=== PATIENT | male | born 1985 | race American Indian/Alaskan Native ===

== ENCOUNTER 2019-05-01 20:08 | Emergency (ER) | payer SELFPAY ==
[2019-05-01] MEDS ORDERED: NACL 0.9% 1000 ML 1,000 ML IV ONE (20:39)
[2019-05-01] MEDS ORDERED: FIORICET PO ONE (20:39)
[2019-05-01] MEDS ORDERED: TORADOL IV ONE (20:39)
[2019-05-01] MEDS ORDERED: REGLAN IV ONE (20:39)
[2019-05-01] MEDS ORDERED: BENADRYL IV ONE (20:39)
--- NOTE | 2019-05-01 21:04 | Cat Scan Report ---
PROCEDURE: CT HEAD/BRAIN WO CON TECHNIQUE: Computerized tomography of the head was performed without contrast material. CT DOSE LENGTH PRODUCT: 920.5 mGycm HISTORY: headache COMPARISONS: None . FINDINGS: Skull and scalp: Normal . Paranasal sinuses: Mucosal thickening in the left maxillary, bilateral ethmoid, and left sphenoid is noted suggesting chronic sinusitis . Ventricles and subarachnoid spaces: Normal . Cerebrum: No evidence of hemorrhage, acute infarction or mass . Cerebellum and brainstem: No evidence of hemorrhage, acute infarction or mass . Vasculature: Normal . Other: None . ASPECTS: 10 IMPRESSION: No acute intracranial abnormality. Chronic sinusitis This document is electronically signed by Britney Cotto MD., May 01 2019 09:02:20 PM ET
[2019-05-01 21:21] LABS: Basophils # (Auto) 0.1 K/mm3 (0.0-0.1); Basophils % (Auto) 0.8 % (0.0-1.8); Eosinophils # (Auto) 0.4 K/mm3 (0.0-0.4); Eosinophils % (Auto) 2.7 % (0.0-4.3); Hematocrit 41.5 % (35.5-45.6); Hemoglobin 14.1 gm/dl (11.8-15.2); Lymphocytes # (Auto) 3.2 K/mm3 (1.2-5.4); Lymphocytes % (Auto) 23.5 % (13.4-35.0); Mean Corpuscular HGB Conc 34 % (32-34); Mean Corpuscular Volume 92 fl (84-94); Monocytes # (Auto) 1.5 K/mm3 (0.0-0.8); Monocytes % (Auto) 11.2 % (0.0-7.3); Platelet Count 296 K/mm3 (140-440); Red Blood Count 4.52 M/mm3 (3.65-5.03); Red Cell Distribution Width 13.1 % (13.2-15.2)
[2019-05-01 21:37] LABS: Alanine Aminotransferase 30 units/L (7-56); Albumin 3.9 g/dL (3.9-5); BUN/Creatinine Ratio 15; Blood Urea Nitrogen 15 mg/dL (9-20); Hemolysis Index 24
[2019-05-01] MEDS ORDERED: ROCEPHIN/NS 1 GM/50 ML 1 GM/50 ML BAG IV ONE (21:47)
--- NOTE | 2019-05-01 21:55 | Emergency Department Report ---
ED Headache HPI - General Chief Complaint: Headache Stated Complaint: HEADACHE Time Seen by Provider: 05/01/19 20:20 Source: patient Exam Limitations: no limitations - History of Present Illness Initial Comments: Patient is a 33-year-old -[place] male with a past medical history of Asthma presents to the ED with complaint of acute onset of persistent severe frontal headache with intermittent lightheadedness for the last 3 weeks. Patient states that the pain has worsened in the last 1 week, especially in the last 2 days such that he is unable to sleep because of severe headache. Patient states that he has had intermittent nasal and sinus congestion with pressure. Last 1 month. Patient states that he has been told to take [id number] pain medications with no relief. Patient denies nausea, vomiting, fever, chills, change in vision, neck pain, chest pain, shortness of breath, dizziness, speech changes, sore throat, cough, palpitations, syncope or seizures. Timing/Duration: constant, waxing and waning, other (3 weeks) Quality: severe, constant, sharp, throbbing Head Injury Location: frontal Recent Head Trauma: no recent headache/trauma Associated Symptoms: denies symptoms, facial pain, nasal congestion, sinus infection, other (lightheadedness). denies: confusion, fatigue, fever/chills, flushing, loss of consciousness, nausea/vomiting, nasal drainage, numbness in legs/feet, rash, seizures, stiff neck, vision changes, weakness Allergies/Adverse Reactions: Allergies shellfish derived Allergy (Verified 02/18/16 13:54) Swelling Home Medications: Ambulatory Orders ALBUTEROL Inhaler (OR & NICU) [ProAir HFA Inhaler] 2 puff IH QID PRN #1 inhalation 03/13/15 Butalb/Acetamin/Caff 50-325-40 [Fioricet 50-325-40] 1 - 2 tab PO Q4H PRN #15 tablet 05/01/19 Clindamycin [Clindamycin CAP] 300 mg PO Q8HR #60 capsule 05/01/19 Ibuprofen [Motrin] 800 mg PO Q8HR PRN #24 tablet 05/01/19 Ondansetron [Zofran Odt] 4 mg PO Q6HR PRN #15 tab.rapdis 05/01/19 ED Review of Systems ROS: Stated complaint: HEADACHE Other details as noted in HPI Comment: All other systems reviewed and negative Constitutional: no symptoms reported. denies: chills, fever Eyes: denies: eye pain, eye discharge, vision change ENT: congestion. denies: ear pain, throat pain, dental pain, hearing loss, epistaxis Respiratory: denies: cough, shortness of breath, SOB with exertion, SOB at rest, wheezing Cardiovascular: denies: chest pain, palpitations, dyspnea on exertion, edema, syncope, paroxysmal nocturnal dyspnea Endocrine: no symptoms reported Gastrointestinal: denies: abdominal pain, nausea, vomiting, diarrhea, constipation, hematemesis Genitourinary: denies: urgency, dysuria Musculoskeletal: denies: back pain, joint swelling, arthralgia Skin: denies: rash, lesions Neurological: headache. denies: weakness, paresthesias Psychiatric: denies: anxiety, depression Hematological/Lymphatic: denies: easy bleeding, easy bruising ED Past Medical Hx - Past Medical History Previous Medical History?: Yes Hx Asthma: Yes Additional medical history: OBESITY - Surgical History Past Surgical History?: No - Social History Smoking Status: Current Every Day Smoker Substance Use Type: Alcohol, Cocaine - Medications Home Medications: Home Medications Medication Instructions Recorded Confirmed Last Taken Type ALBUTEROL Inhaler (OR & NICU) 2 puff IH QID PRN #1 inhalation 03/13/15 02/18/16 Unknown Rx [ProAir HFA Inhaler] Butalb/Acetamin/Caff 50-325-40 1 - 2 tab PO Q4H PRN #15 tablet 05/01/19 Unknown Rx [Fioricet 50-325-40] Clindamycin [Clindamycin CAP] 300 mg PO Q8HR #60 capsule 05/01/19 Unknown Rx Ibuprofen [Motrin] 800 mg PO Q8HR PRN #24 tablet 05/01/19 Unknown Rx Ondansetron [Zofran Odt] 4 mg PO Q6HR PRN #15 tab.rapdis 05/01/19 Unknown Rx ED Physical Exam - General Limitations: No Limitations General appearance: alert, in no apparent distress - Head Head exam: Present: atraumatic, normocephalic, normal inspection - Eye Eye exam: Present: normal appearance, PERRL, EOMI. Absent: scleral icterus, conjunctival injection, nystagmus, periorbital swelling, periorbital tenderness - ENT ENT exam: Present: normal exam, normal orophraynx, mucous membranes moist, TM's normal bilaterally, normal external ear exam - Neck Neck exam: Present: normal inspection, full ROM. Absent: tenderness, meningismus, lymphadenopathy, thyromegaly - Respiratory Respiratory exam: Present: normal lung sounds bilaterally. Absent: respiratory distress, wheezes, rales, rhonchi, stridor, chest wall tenderness, accessory muscle use, decreased breath sounds, prolonged expiratory - Cardiovascular Cardiovascular Exam: Present: regular rate, normal rhythm, normal heart sounds. Absent: systolic murmur, diastolic murmur, rubs, gallop - GI/Abdominal GI/Abdominal exam: Present: soft, normal bowel sounds. Absent: tenderness, guarding, rebound, hyperactive bowel sounds, hypoactive bowel sounds, organomegaly - Rectal Rectal exam: Present: deferred - Extremities Exam Extremities exam: Present: normal inspection, full ROM, normal capillary refill - Back Exam Back exam: Present: normal inspection, full ROM. Absent: tenderness, CVA tenderness (R), CVA tenderness (L), muscle spasm, paraspinal tenderness, vertebral tenderness - Neurological Exam Neurological exam: Present: alert, oriented X3, CN II-XII intact, normal gait, reflexes normal - Psychiatric Psychiatric exam: Present: normal affect, normal mood, anxious - Skin Skin exam: Present: warm, dry, intact, normal color. Absent: rash ED Course Vital Signs 05/01/19 05/01/19 05/01/19 20:17 21:32 22:36 Temperature 98.6 F 98.5 F Pulse Rate 99 H 78 Respiratory 18 20 17 Rate Blood Pressure 167/70 156/88 [Left] O2 Sat by Pulse 99 98 Oximetry - Reevaluation(s) Reevaluation #1: 05/01/19 21:57 Patient is alert and oriented 3 and is not in distress. Head CT scan shows significant chronic sinusitis in the ethmoid, sphenoid and maxillary sinuses but there is no acute intracranial abnormalities or hemorrhages noted in the imaging test. Lab tests results were reviewed and are significant for acute leukocytosis 13,700. The rest of the lab test results are unremarkable. Patient was also treated with Rocephin 1 g IV in the ED for the chronic s inusitis. Patient was treated for headache in the ED and on reevaluation, patient's headache has resolved, patient resting comfortably in the bed in no acute distress. Patient discharged home on medications and otherwise follow-up with his care physician in 7-10 days for reevaluation. Patient was advised to return to the ED immediately if symptoms get worse. 05/01/19 21:58 ED Medical Decision Making - Lab Data Result diagrams: 05/01/19 20:58 05/01/19 20:58 - Radiology Data Radiology results: report reviewed, image reviewed Head CT scan w/o contrast: Shows no acute intracranial abnormalities or hemorrhage; There is however chronic sinusitis noted in the ethmoid, sphenoid and left maxillary sinuses. - Medical Decision Making Patient is alert and oriented 3 and is not in distress. Head CT scan shows significant chronic sinusitis in the ethmoid, sphenoid and maxillary sinuses but there is no acute intracranial abnormalities or hemorrhages noted in the imaging test. Lab tests results were reviewed and are significant for acute leukocytosis 13,700. The rest of the lab test results are unremarkable. Patient was also treated with Rocephin 1 g IV in the ED for the chronic sinusitis. Patient was treated for headache in the ED and on reevaluation, patient's headache has resolved, patient resting comfortably in the bed in no acute distress. Patient discharged home on medications and otherwise follow-up with his care physician in 7-10 days for reevaluation. Patient was advised to return to the ED immediately if symptoms get worse. - Differential Diagnosis severe sinus headache; chronic sinusitis Critical care attestation.: If time is entered above; I have spent that time in minutes in the direct care of this critically ill patient, excluding procedure time. ED Disposition Clinical Impression: Sinus headache Chronic sinusitis Qualifiers: Sinusitis location: pansinusitis Qualified Code(s): J32.4 - Chronic pansinusitis Disposition: DC-01 TO HOME OR SELFCARE Is pt being admited?: No Does the pt Need Aspirin: No Condition: Stable Instructions: Sinusitis (ED), Acute Headache (ED) Additional Instructions: Take medications with food, drink plenty of fluids and follow-up with your primary care physician in 7-10 days for reevaluation. Return to the ED immediately if symptoms get worse. Prescriptions: Clindamycin [Clindamycin CAP] 300 mg PO Q8HR #60 capsule Butalb/Acetamin/Caff 50-325-40 [Fioricet 50-325-40] 1 - 2 tab PO Q4H PRN #15 tablet PRN Reason: Headache Ibuprofen [Motrin] 800 mg PO Q8HR PRN #24 tablet PRN Reason: Pain , Severe (7-10) Ondansetron [Zofran Odt] 4 mg PO Q6HR PRN #15 tab.rapdis PRN Reason: Nausea Referrals: [facility] [Primary Care Provider] - 3-5 Days Time of Disposition: 22:08 Print Language: GERMAN
[2019-05-01 22:37] VITALS: BP 156/88
== END 2019-05-01 22:37 | disposition home or self-care (01) ==
LOC: ED 20:08
DX: J32.2 Chronic ethmoidal sinusitis (principal); J32.3 Chronic sphenoidal sinusitis; J32.0 Chronic maxillary sinusitis; Z91.013 Allergy to seafood; J45.909 Unspecified asthma, uncomplicated; E66.9 Obesity, unspecified; Z68.38 Body mass index [BMI] 38.0-38.9, adult; F17.200 Nicotine dependence, unspecified, uncomplicated; F12.10 Cannabis abuse, uncomplicated
CPT/HCPCS: 36415; 70450; 80053; 85025; 96365; 96375; 99284; J0696; J1200; J1885; J2765; J7030

== ENCOUNTER 2019-10-10 16:03 | Emergency (ER) | payer SELFPAY ==
--- NOTE | 2019-10-10 16:29 | Emergency Department Report ---
Blank Doc - Documentation Documentation: 34-year-old male that presents with URI symptoms. This initial assessment/diagnostic orders/clinical plan/treatment(s) is/are subject to change based on patient's health status, clinical progression and re- assessment by fellow clinical providers in the ED. Further treatment and workup at subsequent clinical providers discretion. Patient/guardians urged not to elope from the ED as their condition may be serious if not clinically assessed and managed. Initial orders include: 1- Patient sent to [facility] for further evaluation and treatment 2- cxR
[2019-10-10 16:37] VITALS: BP 160/85
--- NOTE | 2019-10-10 17:09 | XRay Report ---
CHEST 2 VIEWS INDICATION / CLINICAL INFORMATION: cough. COMPARISON: None available. FINDINGS: SUPPORT DEVICES: None. HEART / MEDIASTINUM: No significant abnormality. LUNGS / PLEURA: No significant pulmonary or pleural abnormality. No pneumothorax. ADDITIONAL FINDINGS: No significant additional findings. IMPRESSION: 1. No acute findings. Signer Name: Jesus Manuel Vila MD Signed: 10/10/2019 5:05 PM Workstation Name: [id number]
--- NOTE | 2019-10-10 18:12 | Emergency Department Report ---
Minor Respiratory - HPI Chief Complaint: Upper Respiratory Infection Stated Complaint: SOB/COUGH/RUNNY NOSE Time Seen by Provider: 10/10/19 16:28 Duration: 1 Day Pain Location: Throat, Nose Severity: moderate Minor Respiratory: Yes Rhinorrhea, Yes Cough, Yes Sick Contacts, No Sore Throat, No Able to Tolerate Fluids, No Ear Pain, No Hemoptysis, No Chest Pain, No Shortness of Breath, No Fever Other History: This is a 34-year-old -[place] male who presents to the emergency room with chest tightness, shortness of breath, rhinorrhea for 1 day. Past medical history of asthma. Patient states he ran out of his inhaler but don't think this is related. He is currently taking Laure-Pomerene plus with minimal improvement of symptoms. Denies nausea or vomiting, myalgia, wheezing, diarrhea, or abdominal pain. ED Review of Systems ROS: Stated complaint: SOB/COUGH/RUNNY NOSE Other details as noted in HPI Constitutional: chills. denies: fever ENT: congestion. denies: ear pain, throat pain Respiratory: cough, SOB with exertion. denies: shortness of breath, wheezing Cardiovascular: denies: chest pain (chest tightness), palpitations Gastrointestinal: denies: abdominal pain, nausea, diarrhea Musculoskeletal: denies: back pain, joint swelling, arthralgia Skin: denies: rash, lesions Neurological: denies: headache, weakness, paresthesias Psychiatric: denies: anxiety, depression ED Past Medical Hx - Past Medical History Previous Medical History?: Yes Hx Asthma: Yes Additional medical history: OBESITY - Surgical History Past Surgical History?: No - Social History Smoking Status: Never Smoker Substance Use Type: None - Medications Home Medications: Home Medications Medication Instructions Recorded Confirmed Last Taken Type ALBUTEROL Inhaler (OR & NICU) 2 puff IH QID PRN #1 inhalation 03/13/15 02/18/16 Unknown Rx [ProAir HFA Inhaler] Butalb/Acetamin/Caff 50-325-40 1 - 2 tab PO Q4H PRN #15 tablet 05/01/19 Unknown Rx [Fioricet 50-325-40] Clindamycin [Clindamycin CAP] 300 mg PO Q8HR #60 capsule 05/01/19 Unknown Rx Ibuprofen [Motrin] 800 mg PO Q8HR PRN #24 tablet 05/01/19 Unknown Rx Ondansetron [Zofran Odt] 4 mg PO Q6HR PRN #15 tab.rapdis 05/01/19 Unknown Rx ALBUTEROL Inhaler (OR & NICU) 2 puff IH QID PRN #8.5 gram 10/10/19 Unknown Rx [ProAir HFA Inhaler] Benzonatate [Tessalon Perles] 100 mg PO Q8HR PRN #30 capsule 10/10/19 Unknown Rx Fluticasone [Flonase] 1 spray NS QDAY #1 bottle 10/10/19 Unknown Rx methylPREDNISolone [Medrol 4MG 4 mg PO DAILY #1 tab.ds.pk 10/10/19 Unknown Rx DOSEPAK (21 tabs)] Minor Respiratory Exam - Exam General: Vital signs noted. No distress. Alert and acting appropriately. HEENT: Yes Pharyngeal Erythema (erythematous posterior pharynx), Yes Moist Mucous Membranes, Yes Rhinorrhea (turbinates congested with clear discharge), No Pharyngeal Exudates, No Conjuctival Injection, No Frontal Tenderness, No Maxillary Tenderness Ear: Neither TM Bulge, Neither TM Erythema, Neither EAC Pain, Neither EAC Discharge Neck: Yes Supple, No Adenopathy Lungs: Yes Good Air Exchange, No Wheezes, No Ronchi, No Stridor, No Cough, No Labored Respirations, No Retractions, No Use of Accessory Muscles, No Other Abnormal Lung Sounds Heart: Yes Regular, No Murmur Abdomen: Yes Normal Bowel Sounds, No Tenderness, No Peritoneal Signs Skin: No Rash, No Edema Neurologic: Alert and oriented, no deficits. Musculoskeletal: Unremarkable. ED Course Vital Signs 10/10/19 16:36 Temperature 98.5 F Pulse Rate 96 H Respiratory 18 Rate Blood Pressure 160/85 O2 Sat by Pulse 100 Oximetry ED Medical Decision Making - Radiology Data Radiology results: report reviewed CHEST 2 VIEWS INDICATION / CLINICAL INFORMATION: cough. COMPARISON: None available. FINDINGS: SUPPORT DEVICES: None. HEART / MEDIASTINUM: No significant abnormality. LUNGS / PLEURA: No significant pulmonary or pleural abnormality. No pneumothorax. ADDITIONAL FINDINGS: No significant additional findings. IMPRESSION: 1. No acute findings. - Medical Decision Making 34 y.o. male that presents with chest tightness, shortness of breath, and rhinorrhea. Past medical history of asthma. Patient examined by me and stable. No distress noted. Vitals normal. Chest xray has been obtained and dictated by radiologist with no acute cardiopulmonary findings. Patient notified of x-ray results with no questions. There is mild congestion and erythematous posterior pharynx, uvula midline on focal exam, and lungs clear throughout. Will treat for upper respiratory infection. Patient has past medical history of asthma and ran out of inhaler. Refill inhaler as well. Start albuterol inhaler, benzonatate, Mucinex DM, Flonase, and Medrol Dosepak. Discharged home stable. Encouraged to do supportive care for URI. Follow up with Primary Care Provider in 2-3 days. Critical care attestation.: If time is entered above; I have spent that time in minutes in the direct care of this critically ill patient, excluding procedure time. ED Disposition Clinical Impression: Upper respiratory infection Qualifiers: URI type: acute nasopharyngitis (common cold) Qualified Code(s): J00 - Acute nasopharyngitis [common cold] Disposition: TO HOME OR SELFCARE Is pt being admited?: No Condition: Stable Instructions: Cold Symptoms (ED), Upper Respiratory Infection (ED) Additional Instructions: Increase fluid intake and rest. Wash hands frequently. Continue taking Tylenol or ibuprofen to control fever. F/U with Primary Care Provider. Return to ER if fever, SOB, or difficulty breathing after 48 hours of supportive care. Prescriptions: Fluticasone [Flonase] 1 spray NS QDAY #1 bottle methylPREDNISolone [Medrol 4MG DOSEPAK (21 tabs)] 4 mg PO DAILY #1 tab.ds.pk ALBUTEROL Inhaler (OR & NICU) [ProAir HFA Inhaler] 2 puff IH QID PRN #8.5 gram PRN Reason: Shortness Of Breath Benzonatate [Tessalon Perles] 100 mg PO Q8HR PRN #30 capsule PRN Reason: Cough Referrals: [facility] [Outside] - 3-5 Days [facility] [Outside] - 3-5 Days [facility] [Outside] - 3-5 Days Forms: Work/School Release Form(ED) Time of Disposition: 18:50
== END 2019-10-10 19:11 | disposition home or self-care (01) ==
LOC: ED 16:03
DX: J06.9 Acute upper respiratory infection, unspecified (principal); R07.89 Other chest pain; J45.909 Unspecified asthma, uncomplicated; E66.9 Obesity, unspecified; Z79.899 Other long term (current) drug therapy; Z91.013 Allergy to seafood
CPT/HCPCS: 71046

== ENCOUNTER 2020-12-24 20:24 | Emergency (ER) | payer SELFPAY ==
[2020-12-24] MEDS ORDERED: IPRATROPIUM/ALBUTEROL SULFATE 3 ML AMPUL.NEB IH ONE (21:05)
[2020-12-24] MEDS ORDERED: predniSONE 20 MG TAB PO ONE (21:05)
[2020-12-24] MEDS ORDERED: ALBUTEROL 2.5 MG/3 ML NEBU IH ONE (21:05)
--- NOTE | 2020-12-24 21:12 | Emergency Department Report ---
- General Stated Complaint: SOB,WHEEZING - History of Present Illness Initial Comments: Patient is a 35-year-old -[place] male with a history of asthma who presents to the ED with acute onset persistent shortness of breath intermittently for the last 1 week. Patient states that he does not have any albuterol inhaler at home after he ran out of what he read he had previously. Patient states that the shortness of breath has been persistent especially when he gets exposed to cold weather. Patient denies chest pain, dizziness, syncope, fever, chills, nausea, vomiting, abdominal pain, headache, sore throat, change in vision, dizziness or headache. MD Complaint: cough, rhinorrhea, nasal congestion, other (shortness of breath) -: Sudden, week(s) (1) Severity: moderate Severity scale (0 -10): 5 Quality: dull Consistency: constant Improves With: nothing Worsens With: other (movement and weather) Associated Symptoms: denies other symptoms, rhinorrhea, nasal congestion, cough, shortness of breath. denies: fever, chills, myalgias, diaphoresis, stiff neck, chest pain, abdominal pain, nausea, vomiting, diarrhea, dysuria, rash, confusion, epistaxis Treatments Prior to Arrival: none - Related Data Previous Rx's Medication Instructions Recorded Last Taken Type Butalb/Acetamin/Caff 50-325-40 1 - 2 tab PO Q4H PRN #15 tablet 05/01/19 Unknown Rx [Fioricet 50-325-40] Clindamycin [Clindamycin CAP] 300 mg PO Q8HR #60 capsule 05/01/19 Unknown Rx Ibuprofen [Motrin] 800 mg PO Q8HR PRN #24 tablet 05/01/19 Unknown Rx Ondansetron [Zofran Odt] 4 mg PO Q6HR PRN #15 tab.rapdis 05/01/19 Unknown Rx Fluticasone [Flonase] 1 spray NS QDAY #1 bottle 10/10/19 Unknown Rx Albuterol Mdi (or & Nicu Only) 2 puff IH QID PRN #1 inhalation 12/25/20 Unknown Rx [ProAir HFA Inhaler] Albuterol Mdi (or & Nicu Only) 2 puff IH QID PRN #8.5 gram 12/25/20 Unknown Rx [ProAir HFA Inhaler] Benzonatate [Tessalon Perles] 100 mg PO Q8HR PRN #30 capsule 12/25/20 Unknown Rx Cetirizine HCl [Zyrtec 10mg tab] 10 mg PO DAILY #30 tablet 12/25/20 Unknown Rx methylPREDNISolone [Medrol 4MG 4 mg PO DAILY #1 tab.ds.pk 12/25/20 Unknown Rx DOSEPAK (21 tabs)] Allergies Allergy/AdvReac Type Severity Reaction Status Date / Time shellfish derived Allergy Swelling Verified 02/18/16 13:54 ED Review of Systems ROS: Stated complaint: SOB,WHEEZING Other details as noted in HPI Constitutional: denies: chills, fever Eyes: denies: eye pain, eye discharge, vision change ENT: congestion. denies: ear pain, throat pain Respiratory: cough, shortness of breath, wheezing Cardiovascular: denies: chest pain, palpitations Endocrine: no symptoms reported Gastrointestinal: denies: abdominal pain, nausea, diarrhea Genitourinary: denies: urgency, dysuria Musculoskeletal: denies: back pain, joint swelling, arthralgia Skin: denies: rash, lesions Neurological: denies: headache, weakness, paresthesias Psychiatric: denies: anxiety, depression Hematological/Lymphatic: denies: easy bleeding, easy bruising ED Past Medical Hx - Past Medical History Hx Asthma: Yes Additional medical history: OBESITY - Social History Smoking Status: Never Smoker Substance Use Type: None - Medications Home Medications: Home Medications Medication Instructions Recorded Confirmed Last Taken Type Butalb/Acetamin/Caff 50-325-40 1 - 2 tab PO Q4H PRN #15 tablet 05/01/19 Unknown Rx [Fioricet 50-325-40] Clindamycin [Clindamycin CAP] 300 mg PO Q8HR #60 capsule 05/01/19 Unknown Rx Ibuprofen [Motrin] 800 mg PO Q8HR PRN #24 tablet 05/01/19 Unknown Rx Ondansetron [Zofran Odt] 4 mg PO Q6HR PRN #15 tab.rapdis 05/01/19 Unknown Rx Fluticasone [Flonase] 1 spray NS QDAY #1 bottle 10/10/19 Unknown Rx Albuterol Mdi (or & Nicu Only) 2 puff IH QID PRN #1 inhalation 12/25/20 Unknown Rx [ProAir HFA Inhaler] Albuterol Mdi (or & Nicu Only) 2 puff IH QID PRN #8.5 gram 12/25/20 Unknown Rx [ProAir HFA Inhaler] Benzonatate [Tessalon Perles] 100 mg PO Q8HR PRN #30 capsule 12/25/20 Unknown Rx Cetirizine HCl [Zyrtec 10mg tab] 10 mg PO DAILY #30 tablet 12/25/20 Unknown Rx methylPREDNISolone [Medrol 4MG 4 mg PO DAILY #1 tab.ds.pk 12/25/20 Unknown Rx DOSEPAK (21 tabs)] ED Physical Exam - General General appearance: alert, in no apparent distress - Head Head exam: Present: atraumatic, normocephalic, normal inspection - Eye Eye exam: Present: normal appearance, PERRL, EOMI Pupils: Present: normal accommodation - ENT ENT exam: Present: normal orophraynx, mucous membranes moist, TM's normal bilaterally, normal external ear exam, other (Grossly congested nasal passages) - Neck Neck exam: Present: normal inspection, full ROM - Respiratory Respiratory exam: Present: wheezes (Mildly diffuse coarse wheezes throughout). Absent: respiratory distress, rales, rhonchi, chest wall tenderness, accessory muscle use, decreased breath sounds, prolonged expiratory - Cardiovascular Cardiovascular Exam: Present: regular rate, normal rhythm, normal heart sounds. Absent: systolic murmur, diastolic murmur, rubs, gallop - GI/Abdominal GI/Abdominal exam: Present: soft, normal bowel sounds. Absent: tenderness, guarding, rebound, hyperactive bowel sounds, hypoactive bowel sounds, organomegaly - Extremities Exam Extremities exam: Present: normal inspection, full ROM, normal capillary refill - Back Exam Back exam: Present: normal inspection, full ROM. Absent: tenderness, CVA tenderness (R), CVA tenderness (L), muscle spasm, paraspinal tenderness, vertebral tenderness - Neurological Exam Neurological exam: Present: alert, oriented X3, CN II-XII intact, normal gait, reflexes normal - Psychiatric Psychiatric exam: Present: normal affect, normal mood - Skin Skin exam: Present: warm, dry, intact, normal color. Absent: rash ED Course Vital Signs 12/24/20 12/24/20 12/24/20 21:26 22:58 23:03 Temperature 98.2 F Pulse Rate 89 Pulse Rate [ 90 Anterior Throughout] Respiratory 18 20 Rate Respiratory 20 Rate [Anterior Throughout] Blood Pressure 168/87 O2 Sat by Pulse 96 97 Oximetry ED Medical Decision Making - Radiology Data Radiology results: report reviewed, image reviewed Findings [facility] [address] [place] [address] XRay Report Signed Patient: EVELIA VERA MR#: [id number] : 1985 Acct:[id number] Age/Sex: 35 / M ADM Date: 12/24/20 Loc: ED Attending Dr: Ordering Physician: MARANDA OZUNA Date of Service: 12/24/20 Procedure(s): XR chest routine 2V Accession Number(s): [id number] cc: MARANDA OZUNA Fluoro Time In Minutes: CHEST 2 VIEWS INDICATION / CLINICAL INFORMATION: COUGH, WHEEZING. COMPARISON: 10/10/2019. FINDINGS: SUPPORT DEVICES: None. HEART / MEDIASTINUM: No significant abnormality. LUNGS / PLEURA: No significant pulmonary or pleural abnormality. No pneumothorax. ADDITIONAL FINDINGS: No significant additional findings. IMPRESSION: No acute cardiopulmonary abnormality. Signer Name: Martina John MD Signed: 12/24/2020 9:28 PM Workstation Name: [id number] Transcribed By: SS Dictated By: MARTINA JOHN Electronically Authenticated By: MARTINA JOHN Signed Date/Time: 12/24/202127 DD/ 26 TD/TT: - Medical Decision Making This is a 35-year-old -[place] male with a history of asthma who presents to the ED with acute onset persistent shortness of breath intermittently for the last 1 week. Patient states that he does not have any albuterol inhaler at home after he ran out of what he read he had previously. Patient states that the shortness of breath has been persistent especially when he gets exposed to cold weather. In the ED, patient is alert and oriented x3 and is not in distress with normal vital signs and oxygen saturation of 96% in room air. Patient received DuoNeb treatment as well as albuterol nebulizer in the ED. Patient also received steroids in the ED. Chest x-ray shows no acute cardiopulmonary abnormalities or pneumonitis. On reevaluation, patient's wheezing resolved medications. Patient oxygen saturation ranges from 98 to 100% in room air. Patient was discharged home on medications and advised to follow- up with his primary care physician in 3 to 5 days for reevaluation or return to the ED immediately if symptoms get worse. - Differential Diagnosis Asthma; bronchitis; URI; pneumonia; Critical care attestation.: If time is entered above; I have spent that time in minutes in the direct care of this critically ill patient, excluding procedure time. ED Disposition Clinical Impression: Shortness of breath, Acute asthmatic bronchitis, Acute upper respiratory infection Disposition: TO HOME OR SELFCARE Is pt being admited?: No Does the pt Need Aspirin: No Condition: Stable Instructions: Acute Bronchitis (ED), Shortness of Breath, Adult, [id number], Upper Respiratory Infection, Adult, [id number], Asthma, Adult, [id number], Acute Bronchitis, Adult, [id number] Additional Instructions: Take medications with food, drink plenty of fluids and follow-up with your primary care physician in 7 to 10 days for reevaluation. Return to the ED immediately if your symptoms get worse. Prescriptions: methylPREDNISolone [Medrol 4MG DOSEPAK (21 tabs)] 4 mg PO DAILY #1 tab.ds.pk Albuterol Mdi (or & Nicu Only) [ProAir HFA Inhaler] 2 puff IH QID PRN #8.5 gram PRN Reason: Shortness Of Breath Albuterol Mdi (or & Nicu Only) [ProAir HFA Inhaler] 2 puff IH QID PRN #1 inhalation PRN Reason: Shortness Of Breath Benzonatate [Tessalon Perles] 100 mg PO Q8HR PRN #30 capsule PRN Reason: Cough Cetirizine HCl [Zyrtec 10mg tab] 10 mg PO DAILY #30 tablet Referrals: [facility] [Provider Group] - 3-5 Days Forms: Work/School Release Form(ED) Time of Disposition: 00:14 Print Language: MONGOLIAN
--- NOTE | 2020-12-24 21:32 | XRay Report ---
CHEST 2 VIEWS INDICATION / CLINICAL INFORMATION: COUGH, WHEEZING. COMPARISON: 10/10/2019. FINDINGS: SUPPORT DEVICES: None. HEART / MEDIASTINUM: No significant abnormality. LUNGS / PLEURA: No significant pulmonary or pleural abnormality. No pneumothorax. ADDITIONAL FINDINGS: No significant additional findings. IMPRESSION: No acute cardiopulmonary abnormality. Signer Name: Malvin Cyr MD Signed: 12/24/2020 9:28 PM Workstation Name: [id number]
[2020-12-24 22:07] VITALS: BP 168/87
== END 2020-12-25 00:35 | disposition home or self-care (01) ==
LOC: ED 20:24
DX: J45.909 Unspecified asthma, uncomplicated (principal); J06.9 Acute upper respiratory infection, unspecified; R06.02 Shortness of breath; E66.9 Obesity, unspecified; Z79.899 Other long term (current) drug therapy; Z91.013 Allergy to seafood; Z68.41 Body mass index [BMI] 40.0-44.9, adult
CPT/HCPCS: 71046; 94640; 99283; J7512; 94644

== ENCOUNTER 2021-02-08 22:39 | Emergency (ER) | payer SELFPAY | END 2021-02-09 00:21 | disposition left against medical advice (07) | LOC: ED 22:39 | DX: R05 Cough (principal); R06.02 Shortness of breath; Z53.21 Procedure and treatment not carried out due to patient leaving prior to being seen by health care provider ==

== ENCOUNTER 2021-04-09 22:40 | Emergency (ER) | payer SELFPAY ==
[2021-04-09 22:50] VITALS: BP 149/101
--- NOTE | 2021-04-09 23:26 | XRay Report ---
CHEST 2 VIEWS INDICATION / CLINICAL INFORMATION: productive cough. COMPARISON: 2 views of the chest from 12/24/2020. FINDINGS: SUPPORT DEVICES: None. HEART / MEDIASTINUM: No significant abnormality. LUNGS / PLEURA: Clear lungs. No significant pleural effusion. No pneumothorax. ADDITIONAL FINDINGS: No significant additional findings. IMPRESSION: 1. No acute abnormality of the chest. Signer Name: Jaswant Mixon MD Signed: 04/09/2021 11:22 PM Workstation Name: [id number]
[2021-04-10] MEDS ORDERED: predniSONE 50 MG TAB PO STA (00:29)
[2021-04-10] MEDS ORDERED: IPRATROPIUM/ALBUTEROL SULFATE 3 ML AMPUL.NEB IH ONE (00:29)
--- NOTE | 2021-04-10 02:23 | Emergency Department Report ---
- General Chief Complaint: Upper Respiratory Infection Stated Complaint: SOBLCHEST TIGHTNESS; SORE THROAT PUI?: No Time Seen by Provider: 04/10/21 00:15 Source: patient Mode of arrival: Ambulatory Limitations: No Limitations - History of Present Illness Initial Comments: 35-year-old F [place]ian male [facility] emerge department complaining of a 5 to 6-day history of persistent cough congestion coryza with sputum production and fever sensation coryza occasional wheeze he has been out of his asthma medication at home needs refill. - Related Data Previous Rx's Medication Instructions Recorded Last Taken Type Butalb/Acetamin/Caff 50-325-40 1 - 2 tab PO Q4H PRN #15 tablet 05/01/19 Unknown Rx [Fioricet 50-325-40] Clindamycin [Clindamycin CAP] 300 mg PO Q8HR #60 capsule 05/01/19 Unknown Rx Ibuprofen [Motrin] 800 mg PO Q8HR PRN #24 tablet 05/01/19 Unknown Rx Ondansetron [Zofran Odt] 4 mg PO Q6HR PRN #15 tab.rapdis 05/01/19 Unknown Rx Fluticasone [Flonase] 1 spray NS QDAY #1 bottle 10/10/19 Unknown Rx Albuterol Mdi (or & Nicu Only) 2 puff IH QID PRN #1 inhalation 12/25/20 Unknown Rx [ProAir HFA Inhaler] Albuterol Mdi (or & Nicu Only) 2 puff IH QID PRN #8.5 gram 12/25/20 Unknown Rx [ProAir HFA Inhaler] Benzonatate [Tessalon Perles] 100 mg PO Q8HR PRN #30 capsule 12/25/20 Unknown Rx Cetirizine HCl [Zyrtec 10mg tab] 10 mg PO DAILY #30 tablet 12/25/20 Unknown Rx methylPREDNISolone [Medrol 4MG 4 mg PO DAILY #1 tab.ds.pk 12/25/20 Unknown Rx DOSEPAK (21 tabs)] Albuterol Mdi (or & Nicu Only) 2 puff IH QID PRN #1 inhalation 04/10/21 Unknown Rx [ProAir HFA Inhaler] Azithromycin [Zithromax] 500 mg PO QDAY #3 tablet 04/10/21 Unknown Rx Benzonatate [Tessalon Perles] 100 mg PO Q8HR #20 capsule 04/10/21 Unknown Rx predniSONE [Deltasone] 50 mg PO QDAY #5 tab 04/10/21 Unknown Rx Allergies Allergy/AdvReac Type Severity Reaction Status Date / Time shellfish derived Allergy Swelling Verified 02/18/16 13:54 ED Review of Systems ROS: Stated complaint: SOBLCHEST TIGHTNESS; SORE THROAT Other details as noted in HPI Comment: All other systems reviewed and negative ED Past Medical Hx - Past Medical History Hx Asthma: Yes Additional medical history: OBESITY - Social History Smoking Status: Current Every Day Smoker - Medications Home Medications: Home Medications Medication Instructions Recorded Confirmed Last Taken Type Butalb/Acetamin/Caff 50-325-40 1 - 2 tab PO Q4H PRN #15 tablet 05/01/19 Unknown Rx [Fioricet 50-325-40] Clindamycin [Clindamycin CAP] 300 mg PO Q8HR #60 capsule 05/01/19 Unknown Rx Ibuprofen [Motrin] 800 mg PO Q8HR PRN #24 tablet 05/01/19 Unknown Rx Ondansetron [Zofran Odt] 4 mg PO Q6HR PRN #15 tab.rapdis 05/01/19 Unknown Rx Fluticasone [Flonase] 1 spray NS QDAY #1 bottle 10/10/19 Unknown Rx Albuterol Mdi (or & Nicu Only) 2 puff IH QID PRN #1 inhalation 12/25/20 Unknown Rx [ProAir HFA Inhaler] Albuterol Mdi (or & Nicu Only) 2 puff IH QID PRN #8.5 gram 12/25/20 Unknown Rx [ProAir HFA Inhaler] Benzonatate [Tessalon Perles] 100 mg PO Q8HR PRN #30 capsule 12/25/20 Unknown Rx Cetirizine HCl [Zyrtec 10mg tab] 10 mg PO DAILY #30 tablet 12/25/20 Unknown Rx methylPREDNISolone [Medrol 4MG 4 mg PO DAILY #1 tab.ds.pk 12/25/20 Unknown Rx DOSEPAK (21 tabs)] Albuterol Mdi (or & Nicu Only) 2 puff IH QID PRN #1 inhalation 04/10/21 Unknown Rx [ProAir HFA Inhaler] Azithromycin [Zithromax] 500 mg PO QDAY #3 tablet 04/10/21 Unknown Rx Benzonatate [Tessalon Perles] 100 mg PO Q8HR #20 capsule 04/10/21 Unknown Rx predniSONE [Deltasone] 50 mg PO QDAY #5 tab 04/10/21 Unknown Rx ED Physical Exam - General Limitations: No Limitations General appearance: alert, in no apparent distress - Head Head exam: Present: atraumatic, normocephalic - Eye Eye exam: Present: normal appearance, PERRL, EOMI Pupils: Present: normal accommodation - ENT ENT exam: Present: mucous membranes moist, other (Nasal congestion is noted.) - Neck Neck exam: Present: normal inspection - Respiratory Respiratory exam: Present: normal lung sounds bilaterally, rhonchi. Absent: respiratory distress - Cardiovascular Cardiovascular Exam: Present: regular rate, normal rhythm. Absent: systolic murmur, diastolic murmur, rubs, gallop - GI/Abdominal GI/Abdominal exam: Present: soft, normal bowel sounds - Rectal Rectal exam: Present: deferred - Extremities Exam Extremities exam: Present: normal inspection, full ROM, normal capillary refill - Back Exam Back exam: Present: normal inspection. Absent: CVA tenderness (R), CVA tenderness (L) - Neurological Exam Neurological exam: Present: alert, oriented X3, CN II-XII intact, normal gait - Psychiatric Psychiatric exam: Present: normal affect, normal mood - Skin Skin exam: Present: warm, dry, intact, normal color. Absent: rash ED Course Vital Signs 04/09/21 04/10/21 22:49 01:23 Temperature 98.4 F Pulse Rate 106 H Pulse Rate [ 106 H Bilateral Throughout] Respiratory 20 Rate Respiratory 20 Rate [Bilateral Throughout] Blood Pressure 149/101 O2 Sat by Pulse 98 Oximetry ED Medical Decision Making - Medical Decision Making This patient presents with acute cough, most consistent with URI/bronchitis. Differential diagnosis includes bronchitis, asthma, pneumonia. Presentation not consistent with acute bacterial pneumonia, influenza, asthma, transient airway hyperresponsiveness. Presentation not consistent with chronic causes of cough (including GERD, asthma, postnasal discharge, medication side effect, CHF, lung cancer or mass). Plan: CXR, supportive care, reassess Critical care attestation.: If time is entered above; I have spent that time in minutes in the direct care of this critically ill patient, excluding procedure time. ED Disposition Clinical Impression: Cough, Bronchitis Disposition: DC-01 TO HOME OR SELFCARE Is pt being admited?: No Does the pt Need Aspirin: No Condition: Stable Instructions: Chronic Bronchitis (ED), Cool Mist Vaporizer, Cough, Adult, How to Use a Metered Dose Inhaler, How to Use a Dry Powder Inhaler, [id number] Prescriptions: predniSONE [Deltasone] 50 mg PO QDAY #5 tab Albuterol Mdi (or & Nicu Only) [ProAir HFA Inhaler] 2 puff IH QID PRN #1 inhalation PRN Reason: Shortness Of Breath Benzonatate [Tessalon Perles] 100 mg PO Q8HR #20 capsule Azithromycin [Zithromax] 500 mg PO QDAY #3 tablet Referrals: PRIMARY CARE, [Primary Care Provider] - 3-5 Days [facility] [Provider Group] - 3-5 Days
== END 2021-04-10 02:48 | disposition home or self-care (01) ==
LOC: ED 22:40
DX: J45.909 Unspecified asthma, uncomplicated (principal); F17.200 Nicotine dependence, unspecified, uncomplicated; E66.8 Other obesity; Z91.013 Allergy to seafood; Z79.899 Other long term (current) drug therapy
CPT/HCPCS: 71046; 94640; 99283; J7512; 94644